=== PATIENT | male | born 1965 | race Caucasian/White ===

== ENCOUNTER 2021-08-23 20:04 | Emergency (ER) | payer OTHER, SELFPAY ==
[2021-08-23] VITALS (19 sets, daily range): BP systolic 163–222; BP diastolic 92–112; PULSE 61–75; RESP 10–18; TEMP 36.5; O2SAT 100
--- NOTE | ~2021-08-23 | CT_ITS ---
EXAMINATION: CT brain wo con DATE: 08/23/2021 21:51 INDICATION: Headaches. TECHNIQUE: Computed tomography (CT) of the head was performed without intravenous contrast. The dose- length product was 605.33 mGy-cm. Automated exposure control and iterative reconstruction technique w ere employed. COMPARISON: None FINDINGS: No acute intracranial hemorrhage, infarction, mass or mass effect. No ventriculomegaly or m idline shift. Basilar cisterns are patent. Paranasal sinuses and mastoids are pneumatized. No depress ed skull fractures. No ventriculomegaly or midline shift. IMPRESSION: 1. No acute intracranial abnormality. Reviewed, dictated and finalized at location A. FILM TECHNICIAN
--- NOTE | 2021-08-23 21:41 | ED.HA ---
HPI - Headache General Chief Complaint: Headache Stated Complaint: head pain x 1 month Time Seen by Provider: 08/23/21 21:41 Source: patient Mode of arrival: ambulatory Limitations: no limitations History of Present Illness HPI Narrative: Patient is a 56-year-old male with a history of prediabetes, borderline hypertension, presenting for evaluation of headache. Patient reports 4 weeks of worsening, throbbing headache pain which is behind his eyes, over his forehead and the back of his head. He reports gradual achiness with his headache over the past several weeks, states that this has occurred in the past many years ago and he was diagnosed with tension headaches at that point. He reports intermittently blurry vision, but no blurry vision currently. He denies nausea, vomiting, chest pain. No photophobia. No focal weakness, numbness or paresthesias. He has been ambulatory. Patient states it has been over 2 years since he has seen a physician. At his last primary care physician appointment he was told he was borderline diabetic and may need blood pressure medication, but then he stopped going to the doctor secondary to pandemic. Patient does notice that his headache worsens if he does not have food or misses a meal. States that today he did not eat lunch and then found his headache to be worse than typical. Does not notice positional pain just. Denies neck pain, fever, rhinorrhea or congestion. No thunderclap sensation. States that Tylenol does often improve the pain and he has been using it intermittently. Related Data Allergies Allergy/AdvReac Type Severity Reaction Status Date / Time No Known Allergies Allergy Unverified 01/16/18 10:41 Review of Systems Review of Systems: CONSTITUTIONAL: Denies fever, chills, or sweats. EYES: Denies current visual changes, redness, or discharge. ENT: Denies rhinorrhea, congestion, sore throat, or otalgia. CARDIOVASCULAR: Denies chest pain, palpitations, or edema. RESPIRATORY: Denies cough or dyspnea. GASTROINTESTINAL: Denies abdominal pain, nausea, vomiting, or diarrhea. GENITOURINARY: Denies dysuria or hematuria. SKIN: Denies rash or itching. MUSCULOSKELETAL: Denies back pain, joint pain, or myalgia. NEUROLOGIC: Reports headache without numbness or weakness PSYCHIATRIC: Denies anxiety or depression. [facility] Family History Family History Mother Family history of kidney disease Family history of chronic obstructive pulmonary disease Father Family history of diabetes mellitus in first degree relative Family history of heart disease in male family member before age 55 Sibling Family history of diabetes mellitus in first degree relative Social History Social History Smoking status: Never smoker Alcohol intake: never Exam Narrative: GENERAL: Awake, alert, conversant HEAD: Normocephalic, atraumatic. EYES: 2+ PERRLA and EOMI. ENT: Nares clear, no rhinorrhea or epistaxis. Mucous membranes moist. NECK: Supple. CHEST: No respiratory distress, breathing even and non labored HEART: Regular rate, sinus rhythm ABDOMEN:Non distended, non tender EXTREMITIES: Normal range of motion. No edema. SKIN: Warm, dry, no rash. NEURO:No focal deficits. Alert and oriented x3. Finger to nose intact bilaterally. EOMs intact without nystagmus. No facial droop/asymmetry noted bilaterally. Grimace intact. Intact sensation in face. Hearing intact bilaterally. Shoulder shrug intact. Strength 5/5 bilateral upper extremities. Strength 5/5 bilateral lower extremities. Reflexes 2+ patellar. Heel to byers intact bilaterally. Ambulatory exam deferred. Course Vital Signs Vital signs: Vital Signs Temperature 36.5 C 08/23/21 20:12 Pulse Rate 75 08/23/21 20:12 Respiratory Rate 15 08/23/21 20:12 Pulse Oximetry 100 08/23/21 20:12 Temperature 36.5 C 08/23/21 20:12 Pulse Rate 60
--- NOTE | 2021-08-23 21:42 | ECG_ITS ---
Measurements Intervals [place] Rate: 61 P: 18 NM: 180 QRS: -27 QRSD: 111 T: 24 QT: 400 QTc: 403 Interpretive Statements SINUS RHYTHM INTRAVENTRICULAR CONDUCTION DELAY DELAYED PRECORDIAL R/S TRANSITION VOLTAGE CRITERIA FOR LVH MINIMAL Q WAVES- HIGH LATERAL LEADS BORDERLINE ECG Electronically Signed On 08-24-2021 6:33:03 MARBLE MASON by Ace Robins D.O.
[2021-08-23 22:04] LABS: Basophils Percent Auto 0.3 % (0.2-1.2); Eosinophils Percent Auto 0.3 % (0-4.4); Hematocrit 40.9 % (42.0-52.0); Immature Granulocyte Absolute 0.02 K/mm3 (0.00-0.031); Immature Granulocyte Percent A 0.3 % (0-0.5); Lymphocytes Absolute Auto 1.67 K/mm3 (0.9-3.2); Lymphocytes Percent Auto 23.4 % (18.3-44.2); Mean Corpuscular HGB Conc 36.7 g/dl (32-36); Mean Corpuscular Hemoglobin 32.3 pg (26-34); Mean Corpuscular Volume 88.1 fl (80-100); Mean Platelet Volume 8.7 fl (7.4-10.4); Monocytes Absolute Auto 0.3 K/mm3 (0.1-0.6); Monocytes Percent Auto 4.8 % (2.6-8.5); Neutrophils Absolute Auto 5.1 K/mm3 (1.3-6.7); Neutrophils Percent Auto 70.9 % (45.5-73.1); Platelet Count Result 142 k/mm3 (150-375); Red Blood Count 4.64 M/mm3 (4.6-6.20); Red Cell Distribution Width 11.8 % (11.5-14.5); White Blood Count 7.1 K/mm3 (4.5-10.0)
[2021-08-23 22:14] LABS: Anion Gap 5 mmol/L (8-16); Blood Urea Nitrogen 15 mg/dL (9-20); Calcium 9.9 mg/dL (8.4-10.2); Carbon Dioxide 30 mmol/L (22-30); Chloride 99 mmol/L (98-107); Estimated CRCL calculation 70 ml/min; Estimated Glomerular Filt Rate > 60; Glucose 132 mg/dL (65-110); Potassium 3.5 mmol/L (3.4-5.0); Sodium 134 mmol/L (137-145)
[2021-08-23 22:21] LABS: Add Urine Microscopic? YES; Appearance Urine Cloudy (Clear); Bacteria Urine Trace /hpf; Bilirubin Urine Negative (Negative); Blood Urine Negative (Negative); Color Urine Yellow (Yellow); Glucose Urine UA Negative (Negative); Ketones Urine Negative (Negative); Leukocyte Esterase Ur Negative LEU/UL (Negative); Mucus Urine Rare /lpf; Nitrate Urine Negative (Negative); Protein Urine Negative (Negative); Specific Grav Ur 1.013 (1.001-1.035); Squamous Epithelial Cell Urine Rare /hpf (Few); Urobilinogen Urine Negative mg/dL (<2.0); WBC Urine 0-3 /hpf
[2021-08-23] MEDS: SODIUM CHLORIDE 0.9% IV 500 ML 999 ML IV CONT (22:58)
[2021-08-23] MEDS: diphenhydrAMINE HCl INJ 50 MG/ML VIAL 25 MG IV PUSH (22:59)
[2021-08-23] MEDS: ACETAMINOPHEN 500 MG TABLET 1000 MG PO (23:00)
[2021-08-23] MEDS: MAGNESIUM SULF 2 GM/WATER 50ML 2 GM/50 ML BAG IVPB (23:02)
[2021-08-23] MEDS: KETOROLAC 15 MG/ML VIAL (*BKC) IV PUSH (23:02)
[2021-08-23 23:38] LABS: Erythrocyte Sedimentation Rate 5 mm/hr (0-20)
[2021-08-23 23:59] LABS: Troponin I < 0.012 ng/mL (0.000-0.034)
[2021-08-24 00:11] LABS: CRP < 0.5 mg/dL (<1.0)
[2021-08-24 00:48] VITALS: BP 168/96; PULSE 60; RESP 17; O2SAT 97
== END 2021-08-24 01:42 | disposition home or self-care (01) ==
PROVIDERS: Emergency Provider Emergency Medicine; PCP Internal Medicine
DX: R51.9 Headache, unspecified (principal); I10 Essential (primary) hypertension
CPT/HCPCS: 36415; 70450; 80048; 81001; 84484; 85025; 85652; 86140; 93005; 96361; 96365; 96375; 99284; A9270; J1100; J1200; J1885; J3475; J7040

== ENCOUNTER 2021-08-26 14:27 | Emergency (ER) | payer OTHER, SELFPAY ==
--- NOTE | ~2021-08-26 | XR_ITS ---
EXAMINATION: XR chest 2V 08/26/2021 17:20 INDICATION: Presyncope. Hypertension. PROCEDURE: 2 view chest COMPARISON: No prior studies for comparison. FINDINGS: The lungs are clear. The cardiomediastinal silhouette is within normal limits. There are no pleural effusions. There is no pneumothorax suspected. IMPRESSION: 1: NO ACUTE CARDIOPULMONARY DISEASE. Reviewed, dictated and finalized at location A. ICAL CELL CHANGER
--- NOTE | ~2021-08-26 | CT_ITS ---
EXAMINATION: CTA brain carotid DATE: 08/26/2021 16:21 SYSTEM ADMIN INDICATION: Headache, paresthesias and hypertension TECHNIQUE: Computed tomographic angiography (CTA) of the head was performed without and with 100 mL O mnipaque-350 intravenous contrast. CTA of the neck was performed with intravenous contrast. The dose- length product was 1792.83 mGy-cm. Maximum intensity projection and volume rendered 3D-reconstruction s were created by the technologist on a separate workstation. COMPARISON: CT dated 12 08/23/2021. FINDINGS: HEAD CT/CTA: Normal brain parenchymal volume. No acute intracranial hemorrhage, infarction, mass or m ass effect. No ventriculomegaly or midline shift. Normal tripathi-white differentiation. Paranasal sinuse s and mastoids are pneumatized. No depressed skull fractures. There is normal enhancement of the intr acranial arteries was symmetric anterior, middle and posterior cerebral arteries. There is dominant l eft vertebral artery. No significant stenosis, occlusion or aneurysm. NECK CTA: Lung apices are normal. The carotid arteries are normal in course and caliber without evide nce for dissection, significant stenosis or occlusion. Thyroid gland is unremarkable. No cervical lym phadenopathy. There is 0% stenosis of the proximal right internal carotid artery relative to normal distal artery l umen diameter (NASCET criteria). There is 0% stenosis of the proximal left internal carotid artery re lative to normal distal artery lumen diameter. IMPRESSION: 1: No acute intracranial abnormality. 2: No significant vascular abnormality of the head or neck. Reviewed, dictated and finalized at location A. EM ADMIN
[2021-08-26 14:33] VITALS: BP 164/101; PULSE 74; RESP 18; TEMP 36.6; O2SAT 99
--- NOTE | 2021-08-26 14:37 | ECG_ITS ---
Measurements Intervals [place] Rate: 67 P: 28 SD: 164 QRS: -36 QRSD: 109 T: 30 QT: 405 QTc: 430 Interpretive Statements SINUS RHYTHM LEFT AXIS DEVIATION VOLTAGE CRITERIA FOR LVH BORDERLINE R WAVE PROGRESSION, ANTERIOR LEADS BASELINE ARTIFACT- I, II, III, AVR, AVL, AVF BORDERLINE ECG Electronically Signed On 08-27-2021 7:54:02 FAMILY SERVICES WORKER by Ace Robins D.O.
[2021-08-26 14:58] VITALS: BP 161/97; PULSE 68; RESP 14; O2SAT 97
--- NOTE | 2021-08-26 14:58 | ED.RECABL ---
HPI - Recheck/Abnormal Lab/Rx General Chief Complaint: Recheck/Abnormal Lab/Rx Stated Complaint: high bp Time Seen by Provider: 08/26/21 14:30 Source: patient Mode of arrival: ambulatory Limitations: no limitations History of Present Illness HPI narrative: This is a 56 year old male that presents to the ER for hypertension. Reports he was seen in the ED for this 3 days ago. Treated for his headache and discharged with hydrochlorothiazide. Reports he has been taking this daily as prescribed. Yesterday he was feeling better, today he again started to note headache. Notes that he feels funny . He was having paresthesias in his hands and feet and felt like he might pass out. Denies fever, vision changes, chest pain, shortness of breath, vomiting, or lower extremity edema. Related Data Allergies Allergy/AdvReac Type Severity Reaction Status Date / Time No Known Allergies Allergy Verified 08/26/21 14:37 Review of Systems Review of Systems: CONSTITUTIONAL: Denies fever EYES: Denies visual changes CARDIOVASCULAR: Denies chest pain, or edema. RESPIRATORY: Denies dyspnea. GASTROINTESTINAL: Denies vomiting NEUROLOGIC: Reports headache. Denies numbness, or weakness. All systems reviewed & are unremarkable except as noted in HPI and below PMFSH Past Medical History Medical History (Updated 08/26/21 @ 17:40 by Bri Wilkerson PA-C) Hypertension Family History Family History Mother Family history of kidney disease Family history of chronic obstructive pulmonary disease Father Family history of diabetes mellitus in first degree relative Family history of heart disease in male family member before age 55 Sibling Family history of diabetes mellitus in first degree relative Social History Social History Smoking status: Never smoker Alcohol intake: never Exam Narrative: GENERAL: Well-appearing, well-nourished, and in no acute distress. HEAD: Normocephalic, atraumatic. EYES: PERRLA and EOMI. ENT: Nares clear, no rhinorrhea or epistaxis. Mucous membranes moist. Oropharynx without tonsillar hypertrophy exudate or other lesions. Bilateral TMs pearly tripathi non-bulging NECK: Supple. No adenopathy or masses. No carotid bruits or JVD CHEST: Clear to auscultation. No respiratory distress. No wheezes rales or rhonchi HEART: Regular rate and rhythm. No murmur heard. Normal peripheral pulses. EXTREMITIES: Normal range of motion. No edema. SKIN: Warm, dry, no rash. NEURO: No focal deficits. Alert and oriented x3. Cranial nerves II through XII grossly intact PSYCH: Normal mood and affect Course Consultations Consultation #1: Spoke with Dr. Manjarrez about patient and workup who would like Losartan 50mg added on Date: 08/26/21 Time: 17:40 Vital Signs Vital signs: Vital Signs Temperature 97.8 F 08/26/21 14:33 Pulse Rate 74 08/26/21 14:33 Respiratory Rate 18 08/26/21 14:33 Blood Pressure 164/101 H 08/26/21 14:33 Pulse Oximetry 99 08/26/21 14:33 Temperature 97.8 F 08/26/21 14:33 Pulse Rate 63 08/26/21 17:31 Respiratory Rate 18 08/26/21 17:31 Blood Pressure 161/87 H 08/26/21 17:31 Pulse Oximetry 96 08/26/21 17:31 MDM - Recheck/Abnormal Lab/Rx MDM Narrative Medical decision making narrative: Patient presents to the ER for headache and hypertension. Patient was evaluated for this 3 days ago and started on hydrochlorothiazide. Reports he has been taking this as prescribed. Blood pressure today in the 150s to 160s systolic. Patient given migraine cocktail with relief of headache. CBC and metabolic panel without concerning findings. EKG without acute changes. Baseline troponin is negative. Chest x-ray without acute cardiopulmonary abnormality. CTA of the head and neck is without acute findings. Patient was updated on case findings. Spoke with Dr. Manjarrez about patient and workup
[2021-08-26] MEDS: SODIUM CHLORIDE 0.9% IV 1,000 ML 999 ML IV CONT (15:05)
[2021-08-26] MEDS: diphenhydrAMINE HCl INJ 50 MG/ML VIAL 25 MG IV PUSH (15:06)
[2021-08-26] MEDS: METOCLOPRAMIDE HCL INJ 10 MG/2 ML VIAL IV PUSH (15:06)
[2021-08-26 15:14] LABS: Basophils Percent Auto 0.5 % (0.2-1.2); Eosinophils Percent Auto 0.5 % (0-4.4); Hemoglobin 15.9 g/dL (14.0-18.0); Immature Granulocyte Absolute 0.01 K/mm3 (0.00-0.031); Immature Granulocyte Percent A 0.2 % (0-0.5); Lymphocytes Absolute Auto 2.17 K/mm3 (0.9-3.2); Lymphocytes Percent Auto 35.3 % (18.3-44.2); Mean Corpuscular HGB Conc 36.1 g/dl (32-36); Mean Corpuscular Hemoglobin 32.2 pg (26-34); Mean Corpuscular Volume 89.1 fl (80-100); Mean Platelet Volume 8.6 fl (7.4-10.4); Monocytes Absolute Auto 0.4 K/mm3 (0.1-0.6); Monocytes Percent Auto 5.7 % (2.6-8.5); Neutrophils Absolute Auto 3.6 K/mm3 (1.3-6.7); Neutrophils Percent Auto 57.8 % (45.5-73.1); Platelet Count Result 160 k/mm3 (150-375); Red Blood Count 4.94 M/mm3 (4.6-6.20); Red Cell Distribution Width 11.8 % (11.5-14.5); White Blood Count 6.1 K/mm3 (4.5-10.0)
[2021-08-26 15:24] LABS: Anion Gap 8 mmol/L (8-16); Blood Urea Nitrogen 19 mg/dL (9-20); Calcium 9.9 mg/dL (8.4-10.2); Carbon Dioxide 33 mmol/L (22-30); Chloride 93 mmol/L (98-107); Estimated CRCL calculation 70 ml/min; Estimated Glomerular Filt Rate > 60; Glucose 188 mg/dL (65-110); Potassium 3.8 mmol/L (3.4-5.0); Sodium 134 mmol/L (137-145)
[2021-08-26 15:31] LABS: Prothrombin Time 12.7 Seconds (11.1-14.7)
[2021-08-26 15:32] LABS: Partial Thromboplastin Time 23.4 SECONDS (22.3-36.8)
[2021-08-26 15:36] LABS: Troponin I < 0.012 ng/mL (0.000-0.034)
[2021-08-26 16:47] LABS: Hemoglobin A1C 5.8 % (<5.7)
[2021-08-26 17:31] VITALS: BP 161/87; PULSE 63; RESP 18; O2SAT 96
[2021-08-26] MEDS: LOSARTAN POTASSIUM 50 MG TABLET PO (17:43)
== END 2021-08-26 18:00 | disposition home or self-care (01) ==
PROVIDERS: Physician Assistant; Emergency Provider Emergency Medicine; PCP Internal Medicine
DX: I10 Essential (primary) hypertension (principal); R94.31 Abnormal electrocardiogram [ECG] [EKG]
CPT/HCPCS: 36415; 70496; 70498; 71046; 80048; 83036; 84484; 85025; 85610; 85730; 93005; 96365; 96375; 99284; A9270; J0131; J1200; J2765; J7030; Q9967

== ENCOUNTER 2021-09-15 10:00 | Emergency (ER) | payer OTHER, SELFPAY ==
--- NOTE | ~2021-09-15 | XR_ITS ---
EXAMINATION: XR shoulder RT min 2V EXAM DATE: 09/15/2021 11:43 INDICATION: Anterior pain with decreased range of motion. TECHNIQUE: The following left shoulder projections obtained: frontal projection with internal rotatio n, frontal projection with external rotation, Grashey, and scapular Y view (4+ views). There is no p rior study for comparison. FINDINGS: There is dense calcification along the rotator cuff, calcific tendinosis There is mild to moderate glenohumeral joint, mild to moderate acromioclavicular joint primary osteoarthritis. There are no acute fractures identified. No radiopaque foreign bodies identified. IMPRESSION: 1. 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 2. Calcific tendinosis. Reviewed, dictated and finalized at location B. VISUAL DESIGNER
[2021-09-15 10:06] VITALS: BP 154/86; PULSE 98; RESP 16; TEMP 36.4; O2SAT 100
--- NOTE | 2021-09-15 11:51 | ED.EXTPRO ---
HPI - Extremity Problem General Chief complaint: Extremity Problem,Nontraumatic Stated complaint: shoulder pain Time Seen by Provider: 09/15/21 11:13 History of Present Illness HPI Narrative: Patient is a 56-year-old male who presents to the ER with right shoulder pain. Progressing over the last week. Painful over the anterior portion of the shoulder. Able to perform external rotation and cannot lift his arm beyond 80 degrees with abduction. No numbness or tingling. No known trauma. Denies chest pain or chest pressure. No exertional shortness of breath. No pain with deep breaths. Has a history of a cartilaginous growth on the left shoulder that was excised years ago. Related Data Allergies Allergy/AdvReac Type Severity Reaction Status Date / Time No Known Allergies Allergy Verified 09/15/21 12:43 Review of Systems Review of Systems: All systems reviewed & are unremarkable except as noted in HPI and below Constitutional: Constitutional: Denies chills, Denies fever(s) and Denies weakness ENT: Denies nasal congestion and Denies sore throat Respiratory: Respiratory: Denies cough and Denies dyspnea Gastrointestinal: Gastrointestinal: Denies abdominal pain, Denies nausea and Denies vomiting Musculoskeletal: Musculoskeletal: Reports arthralgias and Denies joint swelling Neurologic: Denies focal weakness and Denies numbness PMFSH Past Medical History Medical History (Updated 09/15/21 @ 12:47 by Fco Milian MD) Hypertension Surgical History Surgical History (Updated 09/15/21 @ 11:53 by Fco Milian MD) H/O hernia repair H/O shoulder surgery Left Family History Family History Mother Family history of kidney disease Family history of chronic obstructive pulmonary disease Father Family history of diabetes mellitus in first degree relative Family history of heart disease in male family member before age 55 Sibling Family history of diabetes mellitus in first degree relative Social History Social History (Updated 09/10/21 @ 11:24 by Anat Pham CMA) Smoking status: Never smoker Alcohol intake: current Alcohol use details: Has not drank alcohol since his hospital visit 08/26/21 Substance use: never Exam Narrative: GENERAL: Well-appearing, well-nourished, and in no acute distress. HEAD: Normocephalic, atraumatic. NECK: Supple. No reproducible tenderness of the neck or trapezius musculature. CHEST: Clear to auscultation. No respiratory distress. HEART: Regular rate and rhythm. Normal peripheral pulses. EXTREMITIES: Focused exam of the right upper extremity elicits tenderness and swelling right shoulder anteriorly. Limited external rotation and abduction. Cannot internally rotate to touch his back but can place his hand on his abdomen. No numbness or tingling extending down the arm. Normal range of motion at the elbow and wrist. No warmth or redness of the shoulder. SKIN: Warm, dry, no rash. NEURO: Alert and oriented x3. PSYCH: Normal mood and affect. Course Course Emergency Course: Patient informed of results. Placed in sling for comfort. Range of motion exercises and follow-up with orthopedic surgery. Vital Signs Vital signs: Vital Signs Temperature 97.6 F 09/15/21 10:06 Pulse Rate 98 09/15/21 10:06 Respiratory Rate 16 09/15/21 10:06 Blood Pressure 154/86 H 09/15/21 10:06 Pulse Oximetry 100 09/15/21 10:06 Temperature 97.6 F 09/15/21 10:06 Pulse Rate 98 09/15/21 10:06 Respiratory Rate 16 09/15/21 10:06 Blood Pressure 154/86 H 09/15/21 10:06 Pulse Oximetry 100 09/15/21 10:06 MDM - Extremity (Nontraumatic) Imaging Data Radiologist's impression: ITS Impressions Shoulder X-Ray 09/15/21 11:48 IMPRESSION: 1. 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 2. Calcific tendinosis. Discharge Plan Discharge Clinical Impression: Calcific tendon
[2021-09-15] MEDS: KETOROLAC (*BKC) 60 MG/2 ML VIAL IM (12:14)
== END 2021-09-15 12:55 | disposition home or self-care (01) ==
PROVIDERS: Emergency Provider Emergency Medicine; PCP Internal Medicine
DX: M75.31 Calcific tendinitis of right shoulder (principal); I10 Essential (primary) hypertension
CPT/HCPCS: 73030; 96372; 99283; A4565; J1885

== ENCOUNTER 2023-02-24 03:01 | Day surgery (SDC) | payer OTHER, SELFPAY ==
[2023-02-08 09:04] VITALS: BMI 27.4
[2023-02-24 11:03] VITALS: BP 141/97; PULSE 67; RESP 18; TEMP 36.6; O2SAT 99
[2023-02-24] MEDS: LACTATED RINGERS 1,000 ML 150 ML IV CONT (11:08)
--- NOTE | 2023-02-24 11:10 | P.HP_ITS ---
History of Present Illness History of Present Illness Consent: Risks, benefits, and alternatives have been discussed and questions answered. Patient agrees to proceed with procedure. Chief complaint: neoplasm screening Narrative: Fabrice Dawn is a 58 year old male Referred for colon cancer screening. Review of Systems Review of Systems: All systems reviewed & are unremarkable except as noted in HPI and below PMFSH Past Medical History Medical History Hyperlipidemia Hypertension Surgical History Surgical History H/O hernia repair H/O shoulder surgery Left Family History Family History Mother Family history of kidney disease Family history of chronic obstructive pulmonary disease Father Family history of diabetes mellitus in first degree relative Family history of heart disease in male family member before age 55 Sibling Family history of diabetes mellitus in first degree relative Social History Social History Smoking status: Never smoker Alcohol intake: current Drinks per week: 7 Alcohol use details: TESSA Substance use: never Substance use type: does not use Lack of Transportation: No Lack of Food: Never True Current Housing: I Have Housing Concerned About Future Housing: No Difficulty Paying Gas/Electric Bills: No Difficulty Paying for Meds: No Currently Unemployed: No Difficulty w/ Childcare or Family Care: No Living arrangements: with family Spiritual care concerns: No Meds Home Medications and Allergies Home Medications Medication Instructions Recorded Confirmed Type metformin 500 mg tablet 500 mg PO BID #180 tabs 12/27/22 02/08/23 Rx hydrochlorothiazide 25 mg tablet 25 mg PO DAILY 02/08/23 02/08/23 History losartan 50 mg tablet 50 mg PO DAILY 02/08/23 02/08/23 History Allergies Allergy/AdvReac Type Severity Reaction Status Date / Time No Known Allergies Allergy Verified 02/24/23 11:02 Vital Signs Vital Signs - 24 hr 02/24/23 11:03 Temperature 36.6 C Pulse Rate 67 Respiratory Rate 18 Blood Pressure 141/97 H Pulse Oximetry 99 Exam Const: General: alert Orientation/consciousness: patient oriented x3 Resp: Auscultation: clear to auscultation bilaterally Cardio: Rhythm: regular rhythm GI: GI Palp: Yes Soft to palpation and No Tenderness to palpation present (GI) Neuro: General: patient oriented x3 Assessment and Plan Assessment and plan (1) Screening for colon cancer: Code(s): Z12.11 - Encounter for screening for malignant neoplasm of colon Status: Acute Assessment and Plan: Colonoscopy with possible biopsy or polypectomy or cautery or injection of sub stances.
[2023-02-24 11:17] LABS: Glucose Point of Care 109 mg/dl (65-105)
--- NOTE | 2023-02-24 11:36 | WPDANESEPPF ---
Anes - Initial Pre Proc Eval Procedure: Operation Date: 02/24/23 12:30 Proposed Procedures p Colonoscopy - Arian Rojas MD Date/Time: 02/24/23 11:36 Surgeon: Arian Rojas MD Pre Op Diagnosis: neoplasm screening Patient Data Age: 58 Gender: M Height: 1.73 m Weight: 78.9 kg Last Vital Signs Temp 97.8 F 02/24/23 11:03 Pulse 67 02/24/23 11:03 Resp 18 02/24/23 11:03 BP 141/97 H 02/24/23 11:03 Pulse Ox 99 02/24/23 11:03 Allergies Allergy/AdvReac Type Severity Reaction Status Date / Time No Known Allergies Allergy Verified 02/24/23 11:02 Home Medications Medication Instructions Recorded Confirmed Type metformin 500 mg tablet 500 mg PO BID #180 tabs 12/27/22 02/08/23 Rx hydrochlorothiazide 25 mg tablet 25 mg PO DAILY 02/08/23 02/08/23 History losartan 50 mg tablet 50 mg PO DAILY 02/08/23 02/08/23 History Laboratory Tests 02/24/23 11:13 POC Capillary Glucose 109 H mg/dl (65-105) Patient hx anesthesia problems: none Family hx anesthesia problems: none Results Review: All pre-operative results and documents have been reviewed as part of the pre-operative evaluation. [facility] Past Medical History Medical History Hyperlipidemia Hypertension Surgical History Surgical History H/O hernia repair H/O shoulder surgery Left Family History Family History Mother Family history of kidney disease Family history of chronic obstructive pulmonary disease Father Family history of diabetes mellitus in first degree relative Family history of heart disease in male family member before age 55 Sibling Family history of diabetes mellitus in first degree relative Social History Social History Smoking status: Never smoker Alcohol intake: current Drinks per week: 7 Alcohol use details: TSESA Substance use: never Substance use type: does not use Lack of Transportation: No Lack of Food: Never True Current Housing: I Have Housing Concerned About Future Housing: No Difficulty Paying Gas/Electric Bills: No Difficulty Paying for Meds: No Currently Unemployed: No Difficulty w/ Childcare or Family Care: No Living arrangements: with family Spiritual care concerns: No Anes - Eval Final PreProcedure Day of Procedure 02/24/23 11:36 Patient weight: normal Heart: regular rate and rhythm Lungs: clear to auscultation Airway: Mallampati scale class II Neurological: alert and oriented Last oral intake: >/= 8 hours ASA classification: II Emergent: no Anesthetic plan: proceed Anesthesia type and monitoring: general GIVS and standard monitoring Results Review: All pre-operative results and documents have been reviewed as part of the pre-operative evaluation. Informed Consent: The patient's anesthetic plan and its attendant risks and benefits were discussed with the patient/family/POA. Questions were solicited and answers provided to the satisfaction of the patient/family/POA.
[2023-02-24] MEDS: SIMETHICONE ORAL SUSPENSION 20 MG/0.3 ML 30 ML BOTTLE 0.6 ML IRRIGATION (12:44)
[2023-02-24 12:54] VITALS: BP 114/77; PULSE 62; RESP 15; O2SAT 98
[2023-02-24 13:04] VITALS: BP 119/73; PULSE 58; RESP 16; O2SAT 99
[2023-02-24 13:14] VITALS: BP 124/77; PULSE 60; RESP 20; O2SAT 99
== END 2023-02-24 13:42 | disposition home or self-care (01) ==
PROVIDERS: PCP Internal Medicine; Visit Provider Internal Medicine Gastroenterology
PROC: 0DJD8ZZ Inspection of Lower Intestinal Tract, Via Natural or Artificial Opening Endoscopic (ICD-10-PCS; CPT 45378; principal; 2023-02-24 12:30)
DX: Z12.11 Encounter for screening for malignant neoplasm of colon (principal); I10 Essential (primary) hypertension; E78.5 Hyperlipidemia, unspecified; Z79.84 Long term (current) use of oral hypoglycemic drugs
CPT/HCPCS: 45378; 82948; J2001; J2704; J7120

== ENCOUNTER 2023-11-28 13:20 | Outpatient (CLI) | payer OTHER, SELFPAY ==
--- NOTE | ~2023-11-28 | XR_ITS ---
EXAMINATION: XR lg joint inject/asp w image DATE: 11/28/2023 14:16 INDICATION: Frozen left shoulder. Left shoulder pain. TECHNIQUE: A time-out was performed to verify the patient's name, date of , and procedure to b e performed. The procedure including the risks, benefits, and alternatives was discussed with the pat ient. Risks discussed included bleeding and infection. The patient understood the risks and agreed to proceed. The skin overlying the left glenohumeral joint was prepped and draped in usual sterile fas hion. Anesthetic was administered with 1% lidocaine subcutaneously. A 22 G needle was advanced unde r fluoroscopic guidance into the joint. Subsequently, injectate consisting of 3 mL 1% lidocaine and 1 mL 80 mg/mL Depo-Medrol was instilled. The needle was removed and the entry site was cleaned and d ressed. There were no immediate complications. Fluoroscopy exposure time was 0.1 minutes. The total number of images was 1. FINDINGS: Real-time fluoroscopy demonstrates the needle in the left glenohumeral joint. Patient's richa n prior to procedure:0/10. IMPRESSION: 1. Fluoroscopy guided left glenohumeral joint injection of local anesthetic and steroid. Reviewed, dictated and finalized at location A. OR NETWORK ADMINISTRATOR
== END 2023-11-28 13:21 | disposition home or self-care (01) ==
PROVIDERS: PCP Internal Medicine; Visit Provider Orthopaedic Surgery
DX: M75.02 Adhesive capsulitis of left shoulder (principal)
CPT/HCPCS: 20610; 77002; J1040

== ENCOUNTER 2024-02-18 10:59 | Emergency (ER) | payer OTHER, SELFPAY ==
[2024-02-18 11:13] VITALS: BP 113/89; PULSE 83; RESP 16; TEMP 37.1; O2SAT 100
--- NOTE | 2024-02-18 11:22 | ED.SKABFB ---
HPI - Skin/Abscess/Foreign Bdy General Chief complaint: Skin/Abscess/Foreign Body Stated complaint: Red Bump Left Leg Time Seen by Provider: 02/18/24 11:20 Source: patient Mode of arrival: ambulatory Limitations: no limitations History of Present Illness HPI narrative: Fabrice is a 59-year-old male patient presenting to the clinic today with complaints of a red bump area to the left lower lateral leg. Reports that he was cleaning out an old furnace on Monday. Denies any injury but developed some pain over the left lateral lower leg on Monday. Area was red and open and draining at that time. Area is not draining at this time but he now he has developed increasing redness and streaking going up the back of the leg and up to the left groin. Is reporting feeling feverish and having chills. Is having pain in his calf and in his groin. Patient is diabetic. Related Data Allergies Allergy/AdvReac Type Severity Reaction Status Date / Time No Known Allergies Allergy Verified 02/18/24 12:18 Review of Systems Review of Systems: Pertinent positives per HPI. Patient denies any headache, visual changes, dizziness, cough, runny nose, sore throat, shortness of breath, chest pain, palpitations, nausea, vomiting, diarrhea, constipation, abdominal pain, or any urinary issues. [facility] Past Medical History Medical History Hyperlipidemia Hypertension Surgical History Surgical History H/O hernia repair H/O shoulder surgery Left Family History Family History Mother Family history of kidney disease Family history of chronic obstructive pulmonary disease Father Family history of diabetes mellitus in first degree relative Family history of heart disease in male family member before age 55 Sibling Family history of diabetes mellitus in first degree relative Social History Social History Smoking status: Never smoker Alcohol intake: current Drinks per week: 7 Alcohol use details: TESSA Substance use: never Substance use type: does not use Lack of Transportation: No Lack of Food: Never True Current Housing: I Have Housing Concerned About Future Housing: No Difficulty Paying Gas/Electric Bills: No Difficulty Paying for Meds: No Currently Unemployed: No Education: Associate Degree Difficulty w/ Childcare or Family Care: No Living arrangements: with family Spiritual care concerns: No Comments At the time of my signature, I reviewed and agree with the nursing past medical, surgical, social, and family history. There is no relevant family history pertinent to the patient complaint. Exam Narrative: General: Well-developed, well nourished, in no apparent distress Head: Normocephalic, atraumatic. Cardio: Regular rate and rhythm, s1 and s2 normal, no murmur appreciated. Resp: Clear to auscultation bilaterally, no rhonchi, rales, wheezing or rubs. Integumentary: [place], warm, and dry, left lower lateral leg- area of induration measures approx 4x3 with surrounding redness- 10x 7cm- red streaks travel to the posterior calf and to the inner thigh/groin, no visual drainage at this time Course Course Emergency Course: Portions of this record may have been created with voice recognition software. Level of Care: Express Care Visit Vital Signs Vital signs: Vital Signs Temperature 37.1 C 02/18/24 11:13 Pulse Rate 83 02/18/24 11:13 Respiratory Rate 16 02/18/24 11:13 Blood Pressure 113/89 02/18/24 11:13 Pulse Oximetry 100 02/18/24 11:13 Temperature 37.1 C 02/18/24 11:13 Pulse Rate 83 02/18/24 11:13 Respiratory Rate 16 02/18/24 11:13 Blood Pressure 113/89 02/18/24 11:13 Pulse Oximetry 100 02/18/24 11:13 Vital signs reviewed
== END 2024-02-18 11:35 | disposition short-term general hospital (02) ==
PROVIDERS: Emergency Provider Nurse Practitioner Family; PCP Internal Medicine
DX: L03.116 Cellulitis of left lower limb (principal); E78.5 Hyperlipidemia, unspecified; I10 Essential (primary) hypertension; E11.9 Type 2 diabetes mellitus without complications
CPT/HCPCS: 99212; G0463

== ENCOUNTER 2024-02-18 12:03 | Inpatient (IN) | payer OTHER, SELFPAY ==
[2024-02-18] VITALS (7 sets, daily range): BP systolic 129–141; BP diastolic 76–96; PULSE 76–89; RESP 16–20; TEMP 36.4–37.3; O2SAT 98–99; BMI 27.2
--- NOTE | ~2024-02-18 | US_ITS ---
EXAMINATION: US soft tissue LE LT DATE: 02/19/2024 13:36 INDICATION: Left calf erythema. TECHNIQUE: Multiple grayscale and Doppler ultrasound images of the left lower limb were obtained. COMPARISON: None FINDINGS: There is hyperechoic subcutaneous fat in left calf in the patient's area of concern. No hem atoma or abscess. IMPRESSION: 1. Hyperechoic subcutaneous fat in left calf in the patient's area of concern, consistent with inflam mation. Reviewed, dictated and finalized at location A. IMPRESSION: 1. Hyperechoic subcutaneous fat in left calf in the patient's area of concern, consistent with inflammation.
[2024-02-18 13:02] LABS: Basophils Percent Auto 0.2 % (0.2-1.2); Eosinophils Percent Auto 0.2 % (0-4.4); Hematocrit 42.7 % (42.0-52.0); Immature Granulocyte Absolute 0.02 K/mm3 (0.00-0.031); Immature Granulocyte Percent A 0.2 % (0-0.5); Mean Corpuscular HGB Conc 35.1 g/dl (32-36); Mean Corpuscular Hemoglobin 30.4 pg (26-34); Mean Corpuscular Volume 86.6 fl (80-100); Mean Platelet Volume 8.9 fl (7.4-10.4); Monocytes Absolute Auto 0.5 K/mm3 (0.1-0.6); Monocytes Percent Auto 5.6 % (2.6-8.5); Neutrophils Absolute Auto 5.8 K/mm3 (1.3-6.7); Neutrophils Percent Auto 69.8 % (45.5-73.1); Platelet Count Result 144 k/mm3 (150-375); Red Blood Count 4.93 M/mm3 (4.6-6.20); Red Cell Distribution Width 12.5 % (11.5-14.5); White Blood Count 8.4 K/mm3 (4.5-10.0)
[2024-02-18 13:12] LABS: Alanine Aminotransferase 46 U/L (6-50); Albumin Level 5.1 g/dL (3.5-5.1); Alkaline Phosphatase 68 U/L (38-126); Anion Gap 11 mmol/L (4-12); Aspartate Amino Transferase 29 U/L (17-59); Bilirubin,Total 1.5 mg/dL (0.2-1.3); Blood Urea Nitrogen 16 mg/dL (9-20); Carbon Dioxide 27 mmol/L (22-30); Chloride 101 mmol/L (98-107); Estimated CRCL calculation 73 ml/min; Estimated Glomerular Filt Rate > 60; Glucose 136 mg/dL (65-110); Potassium 3.4 mmol/L (3.4-5.0); Sodium 139 mmol/L (137-145)
[2024-02-18] MEDS: ceFAZolin 1 GM/NS 50 ML 1 GM/50 ML BAG IVPB ×2 (13:36→21:51)
--- NOTE | 2024-02-18 14:02 | ED.GENADULT ---
HPI - General Adult General Chief complaint: Unspecified Stated complaint: spider bite Time Seen by Provider: 02/18/24 12:23 Source: patient Mode of arrival: ambulatory Limitations: no limitations History of Present Illness HPI narrative: 59-year-old with a history of hypertension, hyperlipidemia, diabetes here with the complaints of redness to his left leg which started few days ago he is not quite sure he was bit by an insect. He denies any fever or chills. He states that he has red streaks going all the way up to his groin. Onset (ago): day(s) (2) Location: lower extremity (left) Severity: moderate Relieving factors: none Exacerbating factors: none Associated symptoms: denies other symptoms Related Data Allergies Allergy/AdvReac Type Severity Reaction Status Date / Time No Known Allergies Allergy Verified 02/18/24 12:18 Review of Systems Review of Systems: All systems reviewed & are unremarkable except as noted in HPI and below Constitutional: Constitutional: Reports no additional constitutional complaints Eyes: Eyes: Reports no additional eye complaints ENT: Reports system reviewed and no additional complaints, except as documented Cardiovascular: Cardiovascular: Reports no additional cardiovascular complaints Respiratory: Respiratory: Reports no additional respiratory complaints Gastrointestinal: Gastrointestinal: Reports no additional gastrointestinal complaints Musculoskeletal: Musculoskeletal: Reports as per HPI Integumentary/Breasts: Skin/Breast: Reports as per HPI Neurologic: Reports system reviewed and no additional complaints, except as documented Psychiatric: Psychiatric: Reports no additional psychiatric complaints Endocrine: Endocrine: Reports no additional endocrine complaints [facility] Past Medical History Medical History Hyperlipidemia Hypertension Surgical History Surgical History H/O hernia repair H/O shoulder surgery Left Family History Family History Mother Family history of kidney disease Family history of chronic obstructive pulmonary disease Father Family history of diabetes mellitus in first degree relative Family history of heart disease in male family member before age 55 Sibling Family history of diabetes mellitus in first degree relative Social History Social History Smoking status: Never smoker Alcohol intake: current Drinks per week: 7 Alcohol use details: TESSA Substance use: never Substance use type: does not use Lack of Transportation: No Lack of Food: Never True Current Housing: I Have Housing Concerned About Future Housing: No Difficulty Paying Gas/Electric Bills: No Difficulty Paying for Meds: No Currently Unemployed: No Education: Associate Degree Difficulty w/ Childcare or Family Care: No Living arrangements: with family Spiritual care concerns: No Exam Narrative: GENERAL: Well-appearing, well-nourished, and in no acute distress. HEAD: Normocephalic, atraumatic. EYES: PERRLA and EOMI. ENT: Nares clear, no rhinorrhea or epistaxis. Mucous membranes moist. NECK: Supple. CHEST: Clear to auscultation. No respiratory distress. HEART: Regular rate and rhythm. No murmur heard. Normal peripheral pulses. ABDOMEN: Soft, nontender, nondistended, normal active bowel sounds. EXTREMITIES: Normal range of motion. No edema.Erythematous lesion on the left leg and lymphangitic streaking noted on the medial aspect of the thigh. SKIN: Warm, dry, no rash. NEURO: No focal deficits. Alert and oriented x3. PSYCH: Normal mood and affect. Course Course Emergency Course: Notified patient about his lab work agreeable with admission. Discussed with to help very accepted the patient and the treatment plan Vital Signs
[2024-02-18] MEDS: SODIUM CHLORIDE 0.9% IV 1,000 ML 75 ML IV CONT (15:43)
--- NOTE | 2024-02-18 15:58 | ADMGEN ---
This patient, Fabrice Dawn, was admitted to [facility] Surg Room 314-02. Patient/family oriented to hospital policies and general routines including ID bracelet, bed and alarms, visiting hours, pain management, procedures, bathroom and other care routines, personal items, smoking policy, room service/diet, and visiting hours. Information on how to activate the Rapid Response Team has been discussed. Patient/Family are encouraged to report perceived risks to care and to ask questions if they do not understand what they are told or what they should do. Report from Tereza in ER.
--- NOTE | 2024-02-18 16:36 | PM.IMHP ---
H&P: HPI History of Present Illness Date/Time: 02/18/24 16:35 Chief Complaint: Left leg redness. Narrative: This is a very pleasant 59-year-old male with hypertension, hyperlipidemia, and type 2 diabetes mellitus who presented to the emergency department for evaluation of left leg redness. The patient provides the following history. Monday he spent the day outside in the yard cleaning an old furnace. That evening when he was in the shower he noticed a burning pain on the side of his left calf but did not see anything on the leg at that time. The next morning there was a dark red/purple patch in the same area and since then he has developed increasing pain and redness which is extending up into the groin. He does not think that he was bitten by an insect and he denies trauma to the leg. He also reports subjective fever, chills, and shakes. He has never had similar symptoms. In the ED: He was afebrile on arrival with stable vital signs. Labs were significant for a WBC count of 8.4, platelet 144, glucose 136, lactic acid 2.5, total bilirubin 1.5. He had findings of cellulitis in the left leg with lymphangitic streaking and he was given a dose of cefazolin is being admitted in this setting for further IV antibiotics. Review of Systems Review of Systems: 12 systems were reviewed and are negative except for as per HPI. [facility] Past Medical History Medical History Hyperlipidemia Hypertension Kidney stones Type 2 diabetes mellitus Surgical History Surgical History History of arthroscopy of left shoulder History of inguinal hernia repair History of radial keratotomy History of vasectomy Family History Family History Mother Family history of kidney disease Family history of chronic obstructive pulmonary disease Father Family history of heart disease in male family member before age 55 Family history of diabetes mellitus in first degree relative Sibling Family history of diabetes mellitus in first degree relative Social History Social History Social History: Surrogate medical decision maker: Olga Dawn, spouse. Code status: Full code. 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 Spiritual care concerns: No Meds Home Medications and Allergies Home Medications Medication Instructions Recorded Confirmed Type hydrochlorothiazide 25 mg tablet 25 mg PO DAILY #90 tabs 10/27/23 02/18/24 Rx losartan 50 mg tablet 50 mg PO DAILY #90 tabs 10/27/23 02/18/24 Rx metformin 500 mg tablet 500 mg PO BID #180 tabs 01/16/24 02/18/24 Rx atorvastatin 10 mg tablet 10 mg PO DAILY 02/18/24 02/18/24 History Allergies Allergy/AdvReac Type Severity Reaction Status Date / Time No Known Allergies Allergy Verified 02/18/24 16:14 Vital Signs Vital Signs - 24 hr 02/18/24 12:14 02/18/24 12:35 02/18/24 13:40 Temperature 99.2 F Pulse Rate 88 89 Respiratory Rate 16 20 19 Blood Pressure 130/88 139/80 Pulse Oximetry 98 98 99 02/18/24 14:58 Temperature Pulse Rate 85 Respiratory Rate 18 Blood Pressure 140/91 H Pulse Oximetry 98 Exam Narrative: General: Well-developed, nontoxic-appearing male supine in bed in no distress. Weight: 79 kg.
[2024-02-18] MEDS: metFORMIN HCL 500 MG TABLET PO (17:18)
[2024-02-18] MEDS: LOSARTAN POTASSIUM 50 MG TABLET PO (17:18)
[2024-02-18 17:20] LABS: Hemoglobin A1C 6.6 % (<5.7)
[2024-02-18 17:40] LABS: Glucose Point of Care 214 mg/dl (65-105)
[2024-02-18] MEDS: INSULIN ASPART (*BKC) 100 UNITS/ML SUB-Q (17:53)
[2024-02-19 04:46] VITALS: BP 126/80; PULSE 71; RESP 16; TEMP 37.1; O2SAT 98
[2024-02-19 04:47] LABS: Glucose Point of Care 106 mg/dl (65-105)
[2024-02-19] MEDS: ceFAZolin 1 GM/NS 50 ML 1 GM/50 ML BAG IVPB ×2 (06:01→13:52)
[2024-02-19 06:33] LABS: Basophils Percent Auto 0.1 % (0.2-1.2); Eosinophils Percent Auto 0.6 % (0-4.4); Hematocrit 43.5 % (42.0-52.0); Hemoglobin 15.3 g/dL (14.0-18.0); Immature Granulocyte Absolute 0.02 K/mm3 (0.00-0.031); Immature Granulocyte Percent A 0.3 % (0-0.5); Lymphocytes Absolute Auto 2.11 K/mm3 (0.9-3.2); Lymphocytes Percent Auto 31.5 % (18.3-44.2); Mean Corpuscular HGB Conc 35.2 g/dl (32-36); Mean Corpuscular Hemoglobin 30.9 pg (26-34); Mean Corpuscular Volume 87.9 fl (80-100); Monocytes Absolute Auto 0.5 K/mm3 (0.1-0.6); Monocytes Percent Auto 6.7 % (2.6-8.5); Neutrophils Absolute Auto 4.1 K/mm3 (1.3-6.7); Neutrophils Percent Auto 60.8 % (45.5-73.1); Platelet Count Result 157 k/mm3 (150-375); Red Blood Count 4.95 M/mm3 (4.6-6.20); Red Cell Distribution Width 12.2 % (11.5-14.5); White Blood Count 6.7 K/mm3 (4.5-10.0)
[2024-02-19 06:47] LABS: Anion Gap 8 mmol/L (4-12); Blood Urea Nitrogen 15 mg/dL (9-20); Calcium 9.3 mg/dL (8.4-10.2); Carbon Dioxide 29 mmol/L (22-30); Chloride 100 mmol/L (98-107); Estimated CRCL calculation 73 ml/min; Estimated Glomerular Filt Rate > 60; Glucose 138 mg/dL (65-110); Magnesium 1.8 mg/dL (1.6-2.3); Potassium 3.5 mmol/L (3.4-5.0); Sodium 137 mmol/L (137-145)
[2024-02-19 07:41] LABS: Glucose Point of Care 135 mg/dl (65-105)
[2024-02-19] MEDS: ENOXAPARIN 40 MG/0.4 ML SYRINGE SUB-Q (07:55)
[2024-02-19] MEDS: ATORVASTATIN 10 MG TABLET PO (07:55)
[2024-02-19] MEDS: hydroCHLOROthiazide 25 MG TABLET PO (07:55)
[2024-02-19] MEDS: metFORMIN HCL 500 MG TABLET PO (07:55)
[2024-02-19 11:20] LABS: Glucose Point of Care 168 mg/dl (65-105)
[2024-02-19 14:00] VITALS: BP 130/82; PULSE 74; RESP 18; TEMP 36.6; O2SAT 100
--- NOTE | 2024-02-19 15:17 | PM.DS ---
DS: Admitting Diagnosis Discharge Date 02/19/24 Admitting Diagnosis left leg cellulitis type 2 diabetes mellitus hypertension hyperlipidemia DS: Discharge Diagnosis Discharge Diagnosis (1) Left leg cellulitis: Code(s): L03.116 - Cellulitis of left lower limb Status: Acute (2) Type 2 diabetes mellitus: Code(s): E11.9 - Type 2 diabetes mellitus without complications Status: Acute (3) Hypertension: Qualifiers: Hypertension type: primary hypertension Qualified Code(s): I10 - Essential (primary) hypertension Code(s): I10 - Essential (primary) hypertension Status: Acute (4) Hyperlipidemia: Qualifiers: Hyperlipidemia type: mixed hyperlipidemia Qualified Code(s): E78.2 - Mixed hyperlipidemia Code(s): E78.5 - Hyperlipidemia, unspecified Status: Acute DS: Summary Hospital Course Reason for hospitalization: left leg cellulitis type 2 diabetes mellitus hypertension hyperlipidemia Hospital Course: 59-year-old male with hypertension, hyperlipidemia, and type 2 diabetes mellitus who presented to the emergency department for evaluation of left leg redness.?Patient stated that he was outside Monday cleaning a furnace and upon showering later in the day and noticed a burning sensation to the left leg. The next day he developed a dark purple patch to the calf with streaking redness into his groin which prompted him to come to the hospital. Upon arrival to the ED patient was afebrile without leukocytosis on CBC. He denies any trauma, bug bites, cat scratch/bite. He was started on IV antibiotics at that time. Since starting antibiotics the erythema and edema of the leg has improved. He is no longer having streaking to the groin, vital signs remain stable, and there is no leukocytosis. A soft tissue US was obtained to rule out a possible abscess formation and was unremarkable. He was discharged on keflex to complete his antibiotic regimen. He will follow up with his PCP in 1 week. Patient discharged in home with family in stable condition. Status at Discharge Functional status at discharge: independent ambulation Time Spent with Patient Time attestation: Total time spent providing and/or coordinating discharge services: Time spent: Greater than 30 minutes Exam Narrative: AF HR 74 RR 18 SpO2 100 BP 130/82 General: well nourished, well-developed male in no acute respiratory distress who is nontoxic appearing, sitting up in bed HEENT: Normocephalic. Atraumatic. Pupils equal round reactive to light. Extraocular movement intact. Sclera clear and anicteric. No facial asymmetry. Chest: Lungs are clear to auscultation bilaterally. No wheezes or crackles. CV: Heart was regular rate and rhythm. S1/S2. No murmurs, gallops, or rubs. Abd: Abdomen was soft. Nontender. Nondistended. Positive bowel sounds. No organomegaly or masses. Ext: Improving erythema and edema left lower extremity. Mild pain with palpation. No clubbing, cyanosis. 2+ DP pulses bilaterally. Neuro: Patient is alert and oriented x4. Strength is 5/5 in both upper and lower extremities. Cranial nerves 2-12 are intact. Speech is clear. Psych: Normal mood and affect. Patient is pleasant and cooperative. Skin: Warm and dry. No rashes noted. DS: Data Data Completed and Pending Completed studies during hospitalization: Soft tissue US Pending studies at discharge: Blood culture Labs on day of discharge: Labs from last 24 hours 02/19/24 02/19/24 02/19/24 11:15 07:31 06:16 WBC 6.7 RBC 4.95 Hgb 15.3 Hct 43.5 MCV 87.9 MCH 30.9 MCHC 35.2 RDW 12.2 Plt Count 157 MPV 9.0 Immature Gran % (Auto) 0.3 Neut % (Auto) 60.8 Lymph % (Auto) 31.5 Dale % (Auto) 6.7 Eos % (Auto) 0.6 Baso % (Auto) 0.1 L Lymph # (Auto) 2.11 Dale # (Auto) 0.5 Eos # (Auto) 0.0 Baso # (Auto) 0.0 Abs Immat Gran (auto) 0.02 Absolute Neuts (auto) 4.1 Absolute Nucleated R
--- NOTE | 2024-02-27 07:35 | PC.NURSE ---
blood cx are negative.
== END 2024-02-19 15:45 | disposition home or self-care (01) | DRG 603 ==
LOC: ANHED 14:10 → ANH3MEDSUR 14:57
PROVIDERS: Physician Assistant; Admitting Provider Internal Medicine; Emergency Provider Family Medicine; PCP Internal Medicine; Visit Provider Internal Medicine
DX: L03.116 Cellulitis of left lower limb (principal); I10 Essential (primary) hypertension; E78.5 Hyperlipidemia, unspecified; E11.9 Type 2 diabetes mellitus without complications
CPT/HCPCS: 36415; 76882; 80048; 80053; 82948; 83036; 83605; 83735; 85025; 85055; 87040; 96365; 99212; 99285; A9270; G0463; J0690; J1650; J1815; J7030

== ENCOUNTER 2024-05-14 14:31 | Outpatient (CLI) | payer OTHER, SELFPAY ==
--- NOTE | ~2024-05-14 | XR_ITS ---
EXAMINATION: XR_[id number]_CR DATE: 05/14/2024 14:47 INDICATION: Neck pain. Right arm pain. TECHNIQUE: 3 views of cervical spine were obtained. COMPARISON: None. FINDINGS: There is 5 degrees dextrocurvature of cervicothoracic spine. There is mild kyphosis of cerv ical spine. Vertebral body heights are normal. There is mildly decreased disc height at C3-C4, C4-C5, and C5-C6. There is multilevel uncovertebral joint osteoarthritis, severe on the left at C5-C6. Ther e is multilevel mild facet joint osteoarthritis. No central canal stenosis or prevertebral soft tissu e swelling. IMPRESSION: 1. Mild cervical spondylosis. Reviewed, dictated and finalized at location A.
== END 2024-05-14 14:32 ==
PROVIDERS: PCP Nurse Practitioner; Visit Provider Nurse Practitioner
DX: M47.892 Other spondylosis, cervical region (principal)
CPT/HCPCS: 72040

== ENCOUNTER 2024-05-22 10:18 | Outpatient (CLI) | payer OTHER, SELFPAY ==
--- NOTE | ~2024-05-22 | MR_ITS ---
EXAMINATION: MR cervical spine wo con DATE: 05/22/2024 10:58 INDICATION: Cervical radiculopathy. TECHNIQUE: Magnetic resonance imaging (MRI) of the cervical spine was performed without intravenous c ontrast. COMPARISON: Cervical spine radiographs 05/14/2024 FINDINGS: Bone alignment is normal. Vertebral body heights are normal. There is mildly decreased disc height at C4-C5 and moderately decreased disc height at C5-C6 and C6-C7. The spinal cord signal inte nsity is normal. The following disc levels are specifically discussed: C2-C3: The disc does not extend beyond the endplate margin. There is no uncovertebral joint osteoarth ritis. There is no facet joint osteoarthritis. There is no neural foraminal stenosis. There is no deacon tral canal stenosis. C3-C4: The disc is bulging. There is moderate right and mild left uncovertebral joint osteoarthritis. There is mild left facet joint osteoarthritis. There is mild bilateral neural foraminal stenosis. Th ere is mild central canal stenosis. C4-C5: The disc is bulging. There is severe bilateral uncovertebral joint osteoarthritis. There is mi ld right and moderate left facet joint osteoarthritis. There is moderate bilateral neural foraminal s tenosis. There is mild central canal stenosis with ventral indentation of the spinal cord. C5-C6: The disc is bulging. There is severe bilateral uncovertebral joint osteoarthritis. There is mi ld bilateral facet joint osteoarthritis. There is mild right and mild left neural foraminal stenosis. There is mild central canal stenosis with ventral indentation of the spinal cord. C6-C7: There is a central protrusion. There is mild right and moderate left uncovertebral joint osteo arthritis. There is severe right and moderate left facet joint osteoarthritis. There is mild bilatera l neural foraminal stenosis. There is mild central canal stenosis. C7-T1: The disc does not extend beyond the endplate margin. There is moderate uncovertebral joint ost eoarthritis. There is mild bilateral facet joint osteoarthritis. There is no neural foraminal stenosi s. There is no central canal stenosis. IMPRESSION: 1. Moderate cervical spondylosis. Reviewed, dictated and finalized at location A.
== END 2024-05-22 10:19 ==
LOC: GOSHIMG 10:18
PROVIDERS: PCP Nurse Practitioner; Visit Provider Clinical Nurse Specialist
DX: M47.22 Other spondylosis with radiculopathy, cervical region (principal)
CPT/HCPCS: 72141

== ENCOUNTER 2025-05-21 11:44 | Outpatient (CLI) | payer OTHER, SELFPAY ==
--- NOTE | ~2025-05-21 | CT_ITS ---
EXAMINATION: CT abdomen pelvis wo/w con DATE: 05/21/2025 12:22 INDICATION: Hematuria TECHNIQUE: Computed tomography (CT) of the abdomen and pelvis was performed without intravenous contrast. CT of the abdomen and pelvis was then performed with a total of 130 mL Omnipaque-350 intravenous contrast using a double-bolus technique for simultaneous opacification of the renal parenchyma and renal collecting system. Automated exposure control and iterative reconstruction technique were employed. The dose-length product was 1176.63 mGy-cm. COMPARISON: 01/10/2018 FINDINGS: Mild dependent atelectasis in the bilateral lower lobes. Heart size is normal. No pericardial or pleural effusion. Liver, gallbladder, spleen, pancreas and right adrenal gland are normal. 2 cm low-attenuation left adrenal adenoma. There are few bilateral renal cysts the largest at lower pole the left kidney measuring 1.7 cm. 8 mm stone at the left ureteropelvic junction. No other urolithiasis with no stones more distally in the left ureter or in the right kidney or ureter. No hydronephrosis with excreted contrast extending beyond the stone. The bilateral renal collecting systems and ureters are opacified in their near entirety with no urothelial irregularities. Bilateral contrast opacified ureteral jets are visualized within the normal bladder. Mild prostatomegaly measuring 4.1 x 3.7 cm. Small fat-containing right inguinal hernia. There are few sigmoid diverticula without adjacent from trace stranding to suggest diverticulitis. No free intraperitoneal gas or fluid. No pathologically enlarged abdominal or pelvic lymphadenopathy. Small bowel and appendix appendix are normal. Moderate lower thoracic and mild lumbar spondylosis. IMPRESSION: 1. Nonobstructing 8 mm stone at the left ureteropelvic junction. Reviewed, dictated and finalized at location A.
[2025-05-21 12:05] LABS: Estimated Glomerular Filt Rate > 60
--- OUTSIDE RECORDS SUMMARY | 2025-05-21 12:07 | XMS_ITS | Encounter Summary ---
Author Organization [employer] Address [address] [place] [address] Care Team Providers Care Dental Secretary Name Role Phone Unavailable Primary Care Provider Unavailabl e Encounter Details Date Type Department Care Team (Late st Contact Info) Description 05/20/2025 External Device Data [facility] Provider, Abstract NO ADDRESS ON FILE Social History Tobacco Use Types Packs/Day Years Used Date Smoking Tobacco: Never Assessed Sex and Gender Information Value Date Recorded Sex Assigned at Not on file Legal Sex Male 2:35 PM CDT Gender Identity Not on file Sexual Orientation Not on file documented as of this encounter Plan of Treatment Not on file documented as of this encounter Visit Diagnoses Not on filedocumented in this encounter
--- OUTSIDE RECORDS SUMMARY | 2025-05-21 12:07 | XMS_ITS | Clinical Summary ---
Author Organization [facility] Address [address] [place] [address] Care Team Providers Care Deburrer Strip Name Role Phone Unavailable Primary Care Provider Unavailabl e Allergies No known active allergies Medications hydroCHLOROthia zide 25 mg tablet TAKE 1 TABLET BY MOUTH EVERY DAY 90 Tablet 1 07/28/2023 1:02 PM CDT 3 Active losartan (COZAAR) 50 mg tablet TAKE 1 TABLET BY MOUTH EVERY DAY 90 Tablet 1 07/28/2023 1:02 PM CDT 3 Active metFORMIN (GLUCOPHAGE) 500 mg tablet Take one tablet (500 mg) orally twice a day 180 Tablet 12/27/2022 2:41 PM CDT 3 Active hydroCHLOROthia zide 25 mg tablet Take 1 Tablet (25 mg) by mouth daily. 90 Tablet 1 01/23/2023 3:30 PM CDT 3 Active losartan (COZAAR) 50 mg tablet Take 1 Tablet (50 mg) by mouth daily. 90 Tablet 1 01/23/2023 3:30 PM CDT 3 Active sildenafiL (VIAGRA) 50 mg tablet Take 1 Tablet (50 mg) by mouth 1 time daily as needed for sexual activity. Administer 30 minutes to 4 hours before activity. 10 Tablet 10/09/2023 10:36 AM RN NEW GRAD 4 Active nirmatrelvir-ri tonavir (Paxlovid) 300(150mg x 2)-100 mg oral pack take TWO 150 mg tablets of nirmatrelvir with ONE 100 mg tablet of ritonavir twice daily for 5 days PO 30 Each 4 Active methylPREDNISol one (Medrol, Derick,) 4 mg Tablets, Dose Pack Takeas directed on package. 21 Tablet 11/20/2023 4:12 PM RN NEW GRAD 4 Active naproxen (Naprosyn) 500 mg tablet Take 1 Tablet (500 mg) by mouth 2 times daily. 60 Tablet 4 Active metFORMIN (GLUCOPHAGE) 500 mg tablet Take one tablet (500 mg) orally twice a day 180 Tablet 3 04/24/2024 5:43 PM CDT 4 Active atorvastatin (LIPITOR) 10 mg tablet Take 1 Tablet (10 mg) by mouth daily. 90 Tablet 1 04/24/2024 5:43 PM CDT 4 Active hydroCHLOROthia zide 25 mg tablet Take 1 Tablet (25 mg) by mouth daily in the morning. 90 Tablet 1 04/24/2024 5:43 PM CDT 4 Active losartan (COZAAR) 50 mg tablet Take 1 Tablet (50 mg) by mouth daily at dinner. 90 Tablet 1 04/24/2024 5:43 PM CDT 4 Active cyclobenzaprine (FLEXERIL) 5 mg Tablet Take 1 Tablet (5 mg) by mouth 3 times daily as needed for muscle spasm. Do not take while driving, may cause drowsiness. 20 Tablet 05/15/2024 5:33 PM CDT 4 Active methylPREDNISol one (MEDROL DOSPACK) 4 mg Tablets, Dose Pack Take as directed on package 21 Each 05/15/2024 5:33 PM CDT 4 Active Encounters Date Type Department Care Team Description 05/20/2025 External Device Data [facility] Provider, Abstract 04/16/2025 External Device Data [facility] Provider, Abstract 03/19/2025 External Device Data [facility] Provider, Abstract from Last 3 Months Social History Tobacco Use Types Packs/Day Years Used Date Smoking Tobacco: Never Assessed Sex and Gender Information Value Date Recorded Sex Assigned at Not on file Legal Sex Male 2:35 PM CDT Gender Identity Not on file Sexual Orientation Not on file Plan of Treatment Health Maintenance Due Date Last Done Comments DTAP/TDAP/TD VACCINES (1 - Tdap) 02/07/1984 COLORECTAL SCREENING 2010 Colorectal Cancer Screening 2010 FIT-DNA Q 3 years 2010 FIT/FOBT Q 1 year 2010 Flex Sig/CT Colonography Q 5 years 2010 ZOSTER VACCINE (1 of 2) 2015 INFLUENZA VACCINE (#1) 2025 RSV VACCINE (60+ or ) (1 - 1-dose 75+ series) 02/07/2040 HEPATITIS B VACCINES Aged Out No long er eligible based on patient's age to complete this topic Insurance [employer] (INTERNAL) [facility]
[2025-05-21 13:36] LABS: Hematocrit 40.5 % (42.0-52.0); Hemoglobin 13.8 g/dL (14.0-18.0); Immature Granulocyte Percent A 0.2 % (0-0.5); Lymphocytes Absolute Auto 1.87 K/mm3 (0.9-3.2); Mean Corpuscular HGB Conc 34.1 g/dl (32-36); Mean Corpuscular Hemoglobin 29.4 pg (26-34); Mean Corpuscular Volume 86.4 fl (80-100); Nucleated Red Blood Cells Absolute Auto 0.000 K/mm3 (0.0-0.012); Nucleated Red Blood Cells Perc 0.0 % (0.0-0.2); Platelet Count Result 160 k/mm3 (150-375); Red Blood Count 4.69 M/mm3 (4.6-6.20); White Blood Count 5.7 K/mm3 (4.5-10.0)
[2025-05-21 14:39] LABS: Alanine Aminotransferase 56 U/L (6-50); Albumin Level 4.3 g/dL (3.5-5.1); Alkaline Phosphatase 55 U/L (38-126); Anion Gap 10 mmol/L (4-12); Aspartate Amino Transferase 43 U/L (17-59); Bilirubin,Total 0.9 mg/dL (0.2-1.3); Blood Urea Nitrogen 16 mg/dL (9-20); Calcium 9.3 mg/dL (8.4-10.2); Carbon Dioxide 28 mmol/L (22-30); Chloride 96 mmol/L (98-107); Estimated Glomerular Filt Rate > 60; Glucose 100 mg/dL (65-110); Potassium 3.5 mmol/L (3.4-5.0); Sodium 134 mmol/L (137-145); Total Protein 6.6 g/dL (6.3-8.2)
[2025-05-21 15:15] LABS: Prostate Specific Antigen 0.8 ng/mL (< OR = 4.0)
== END 2025-05-21 11:45 | disposition home or self-care (01) ==
PROVIDERS: PCP Internal Medicine; Visit Provider Nurse Practitioner
DX: R31.9 Hematuria, unspecified (principal); R10.9 Unspecified abdominal pain; N20.0 Calculus of kidney
CPT/HCPCS: 36415; 74178; 80053; 84153; 85025; Q9967

== ENCOUNTER 2025-05-28 12:43 | Day surgery (SDC) | payer OTHER, SELFPAY ==
[2025-05-28] VITALS (9 sets, daily range): BP systolic 126–158; BP diastolic 70–82; PULSE 69–93; RESP 12–20; TEMP 36.3–36.4; O2SAT 98–100
--- NOTE | ~2025-05-28 | XR_ITS ---
EXAMINATION: XR retrograde pyelo w/stent LT DATE: 05/28/2025 14:03 INDICATION: Left internal ureteral stent placement TECHNIQUE: Fluoroscopic images from a left internal ureteral stent placement are submitted for review. 24 seconds of fluoroscopy time. FINDINGS: There is a left double-J internal ureteral stent projecting in expected position, with proximal [place] loop at the level of the renal pelvis and distal loop in the pelvis within the bladder lumen. IMPRESSION: 1. Left internal ureteral stent placement. Please refer to real-time procedural findings for details. Reviewed, dictated and finalized at location O. IMPRESSION: 1. Left internal ureteral stent placement. Please refer to real-time procedur al findings for details.
--- OUTSIDE RECORDS SUMMARY | 2025-05-28 12:51 | XMS_ITS | Clinical Summary ---
Author Organization [facility] Address [address] [place] [address] Care Team Providers Care Seed Technician Name Role Phone Unavailable Primary Care Provider [...] before activity. 10 Tablet 10/09/2023 10:36 AM FLYING SQUAD WORKER 4 Active nirmatrelvir-ri tonavir (Paxlovid) 300(150mg x 2)-100 mg oral pack take TWO 150 mg tablets of nirmatrelvir with ONE 100 mg tablet of ritonavir twice daily for 5 days PO 30 Each 4 Active methylPREDNISol one (Medrol, Derick,) 4 mg Tablets, Dose Pack Takeas directed on package. 21 Tablet 11/20/2023 4:12 PM FLYING SQUAD WORKER 4 Active naproxen (Naprosyn) 500 mg tablet [...]
--- OUTSIDE RECORDS SUMMARY | 2025-05-28 12:51 | XMS_ITS ---
Author Organization Unknown ENCOUNTERS Encounter Performer Location Date Diagnosis Diagnosis Status Outpatient Gisselle Funez [facility] [address] [place] [address] [id number] [place] Inpatient [facility] [address] [place] [address] [id number] [place] Emergency [facility] [address] [place] [address] [id number] PAT Pre Admit [facility] [address] [place] [address] [id number] Outpatient Anoop Dennyrer [facility] [address] [place] [address] [id number] [place] Outpatient Arian Rojas [facility] [address] [place] [address] [id number] [place] Emergency Fco Milian [facility] [address] [place] [address] [id number] [place] Emergency Anthony Harley [facility] [address] [place] [address] [id number] [place] Emergency Zaida Iraheta [facility] [address] [place] [address] [id number] [place] *Note: Encounters from your own facility or health system may be excluded. Allergies, Adverse Reactions, Alerts Allergen Type Severity Identification Date Medications Name Date Quantity Days Supplied GPI Number
--- NOTE | 2025-05-28 12:59 | ECG_ITS ---
Test Date: 2025-05-28 13:15:40 Measurements Intervals [place] Rate: 59 P: 30 OK: 169 QRS: -16 QRSD: 110 T: 30 QT: 410 QTc: 409 Interpretive Statements SINUS BRADYCARDIA BORDERLINE R WAVE PROGRESSION, ANTERIOR LEADS BORDERLINE ECG No previous ECG available for comparison Electronically Signed On 05-28-2025 14:32:40 CDT by Ace Robins D.O.
[2025-05-28] MEDS: LACTATED RINGERS 1,000 ML 30 ML IV CONT (13:00)
--- NOTE | 2025-05-28 13:24 | P.PNAN_ITS ---
Anes - Initial Pre Proc Eval Procedure: Operation Date: 05/28/25 13:30 Proposed Procedures p Cystoscopy, Left Stent Placement, Possible Left Retrograde Pyelogram - Isaiah Steven MD Date/Time: 05/28/25 13:24 Surgeon: Isaiah Steven MD Pre Op Diagnosis: left UPJ stone Patient Data Age: 60 Gender: M Height: Weight: 77.8 kg Allergies Allergy/AdvReac Type Severity Reaction Status Date / Time No Known Allergies Allergy Verified 05/21/25 10:12 Home Medications ?Medication ?Instructions ?Recorded ?Confirmed ?Type metformin 1,000 mg tablet 1,000 mg PO BIDWMEAL 90 days #180 12/26/24 12/26/24 Rx tabs atorvastatin 10 mg tablet 10 mg PO DAILY #90 tabs 01/01 05/26 Rx hydrochlorothiazide 25 mg tablet 25 mg PO DAILY #90 ta bs 01/27/25 Rx triamcinolone acetonide 0.1 % 1 applic topical TID PRN rash #80 03/12/25 Rx topical cream grams losartan 50 mg tablet 50 mg PO DAILY #90 tabs 04/02 01/24 Rx tamsulosin 0.4 mg capsule (Flomax) 0.4 mg PO DAILY #28 caps 05/21/25 Rx hydrocodone 10 mg-acetaminophen 1 tablet PO Q6H PRN pa in #20 tabs 05/28/25 Rx 325 mg tablet Patient hx anesthesia problems: none Family hx anesthesia problems: none Results Review: All pre-operative results and documents have been reviewed as part of the pre- operative evaluation. [facility] Past Medical History Medical History Kidney stones Type 2 diabetes mellitus Hyperlipidemia Hypertension Surgical History Surgical History History of arthroscopy of left shoulder History of vasectomy History of radial keratotomy History of inguinal hernia repair Family History Family History Mother Family history of kidney disease Family history of chronic obstructive pulmonary disease Father Family history of heart disease in male family member before age 55 Family history of diabetes mellitus in first degree relative Sibling Family history of diabetes mellitus in first degree relative Social History Social History Social History: Surrogate medical decision maker: Olga Dawn, spouse. Code status: Full code. 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 Gender identity (if verbalized by the patient): Male Spiritual care concerns: No Anes - Eval Final PreProcedure Day of Procedure 05/28/25 13:24 Patient weight: normal Heart: regular rate and rhythm Lungs: clear to auscultation Airway: Mallampati scale class II Neurological: alert and oriented Last oral intake: >/= 8 hours ASA classification: III Emergent: no Anesthetic plan: proceed Anesthesia type and monitoring: general LMA and standard monitoring Results Review: All pre-operative results and documents have been reviewed as part of the pre- operative evaluation. Informed Consent: The patient's anesthetic plan and its attendant risks and benefits were discussed with the patient/family/POA. Questions were solicited and answers provided to the satisfaction of the patient/family/POA.
--- NOTE | 2025-05-28 13:32 | WPDHPUPDATE1 ---
History and Physical Update Update Date/Time: 05/28/25 13:32 History and Physical has been reviewed, including an updated exam of the patient. There are NO changes in the patient's condition. Risks, benefits, and alternatives have been discussed and questions answered. Patient agrees to proceed with procedure.
[2025-05-28] MEDS: ceFAZolin 2 GM in SODIUM CHLORIDE 0.9% IV 50 ML 100 ML IVPB (13:38)
[2025-05-28] MEDS: LIDOCAINE 2% GEL UROJET 10 ML PKG MUCOUS MEM (13:43)
[2025-05-28] MEDS: oxyCODONE HCL (*CRX) 5 MG TAB IR PO (15:24)
--- NOTE | 2025-05-29 08:16 | W.PM.PROC2 ---
Procedure Note - Detailed Date of Procedure 05/29/25 Pre-op Diagnosis Left UPJ stone Post-op Diagnosis Same Procedure Performed Cystoscopy, left ureteral stent placement, left retrograde pyelogram Surgeon Isaiah Steven MD Anesthesia General Description of Procedure Patient is brought to the operative suite where he was prepped draped in routine sterile fashion while in dorsal lithotomy position after the uneventful induction of a general anesthetic. Cystoscopy was undertaken with a 19 F rigid cystoscope. There was no urethral stricture. He has mild lateral lobe hyperplasia with a 1.5 urethra. Bladder mucosa is normal. There is no intravesical foreign body neoplasm. Has a single orthotopic ureteral bilaterally. A 0.035 in glidewire was advanced into his left renal pelvis under fluoroscopy. Retrograde pyelography is obtained with a [place] catheter to ensure appropriate placement of a 4.8 F variable length ureteral stent with proximal coil in the renal pelvis and distal coil in the bladder. Scopes wires removed and he was taken recovery room in good condition. Drains Yes Pathology None sent Complications No immediate complications Condition Stable
== END 2025-05-28 16:42 | disposition home or self-care (01) ==
PROVIDERS: PCP Internal Medicine; Visit Provider Urology
PROC: (CPT 52352; principal; 2025-05-28 13:30)
DX: N20.1 Calculus of ureter (principal); E78.5 Hyperlipidemia, unspecified; I10 Essential (primary) hypertension; E11.9 Type 2 diabetes mellitus without complications; Z79.84 Long term (current) use of oral hypoglycemic drugs; Z79.891 Long term (current) use of opiate analgesic; Z98.890 Other specified postprocedural states; Z82.49 Family history of ischemic heart disease and other diseases of the circulatory system
CPT/HCPCS: 50590; 74420; 82948; 93005; J0690; A9270; C1769; C2617; J1100; J2405; J2704; J7120

== ENCOUNTER 2025-05-30 02:02 | Day surgery (SDC) | payer OTHER, SELFPAY ==
[2025-05-28 14:25] VITALS: BMI 26.9
--- NOTE | 2025-05-28 14:30 | PC.NURSE ---
Report to the Outpatient Waiting Room, entrance under the green pavilion located off [facility], at time _0830_ on date _[id number]_. Planned Procedure Time: _1030_.? Time changes happen often and if your time is changed the preop area will call you the afternoon before. - You and your visitor will be asked to self-screen and do not enter if you have any COVID symptoms. Please call surgeon if you need to reschedule. - A mask is optional within the hospital at this time. Patients may have clear liquids (water, carbonated beverages, clear teas, apple juice) until 3 hours prior to surgery with a maximum of 20 ounces. - No food from midnight until time of surgery and no smoking, or chewing tobacco (or any form of nicotine). No chewing gum, candy or mints. Take only the following medications with a SIP of water on the morning of surgery: ___Hydrocodone if needed.____ DO NOT STOP ANY OF YOUR OTHER PRESCRIPTION MEDICATIONS PRIOR TO SURGERY EXCEPT THE FOLLOWING Hold all vitamins and supplements for 3 days per anesthesiologist. Medications to discontinue per physician Date to take last dose Please no make-up, nail bruneian, hairspray, perfume, deodorant, or body powder the day of surgery.? No jewelry (including any body piercings) or valuables the day of surgery, leave them at home.? Please take a shower or bath the night before, or the morning of, surgery with an antibacterial soap.? Wear comfortable, loose fitting clothing.? - Jewelry must be removed prior to entering the operating room.? Rings and piercings that are not removed may be cut off. - The hospital will not accept responsibility for valuables.? - Please leave all valuables, including medications, at home the day of surgery. If you are going home after surgery, a licensed concrete truck driver must drive you home.? - NO public transportation without another adult if you receive anesthesia. - We recommend that an adult stay with you for 24 hours following discharge. - We also recommend that you do not drive, make important decision, drink alcoholic beverages, or take any drugs that were not prescribed by your health care provider for at least 24 hours after your discharge time. Follow any additional instructions given to you from your surgeon. Telephone instructions given to __Sonya wife___and asked if any additional questions and then verbalized understanding. Patient advised to call surgeon office or pre surgery nurse liaison [phone] if any additional questions.
[2025-05-30] VITALS (8 sets, daily range): BP systolic 119–143; BP diastolic 64–89; PULSE 50–71; RESP 12–16; TEMP 36.4–36.9; O2SAT 95–100
--- NOTE | ~2025-05-30 | XR_ITS ---
XR abdomen/kub 1V 05/30/2025 08:43 Indication: Renal stone. He is to the elbow. Procedure: KUB Comparison: 01/16/2018 Findings: There is a left UPJ stone measuring 1 cm. There are radiodensities in the right abdomen, likely bowel content. Left internal ureteral stent in expected position. Nonobstructing bowel pattern. Impression: 1: Left UPJ stone measuring 1 cm. Left internal ureteral stent in expected position. Reviewed, dictated and finalized at location O. Impression: 1: Left UPJ stone measuring 1 cm. Left internal ureteral stent in expected posi tion.
--- OUTSIDE RECORDS SUMMARY | 2025-05-30 02:10 | XMS_ITS ---
Author Organization Unknown ENCOUNTERS Encounter Performer Location Date Diagnosis Diagnosis Status Outpatient [facility] [address] [place] [address] [id number] [place] Pre Admit [facility] [address] [place] [address] [id number] Outpatient [facility] [address] [place] [address] [id number] [place] Outpatient Gisselle Weiss [facility] [address] [place] [address] [id number] [place] Inpatient [facility] [address] [place] [address] [id number] [place] Emergency [facility] [address] [place] [address] [id number] PAT Pre Admit [facility] [address] [place] [address] [id number] Outpatient Anoop Guzman [facility] [address] [place] [address] [id number] [place] Outpatient Arian Rojas [facility] [address] [place] [address] [id number] [place] Emergency Fco Milian [facility] [address] [place] [address] [id number] [place] Emergency Anthony Cherri [facility] [address] [place] [address] [id number] [place] Emergency Zaida Iraheta [facility] [address] [place] [address] [id number] [place] *Note: Encounters from your own facility or health system may be excluded. Allergies, Adverse Reactions, Alerts Allergen Type Severity Identification Date Medications Name Date Quantity Days Supplied GPI Number
--- OUTSIDE RECORDS SUMMARY | 2025-05-30 02:10 | XMS_ITS | Clinical Summary ---
Author Organization [facility] Address [address] [place] [address] Care Team Providers Care Trust Vault Custodian Name Role Phone Unavailable Primary Care Provider [...] before activity. 10 Tablet 10/09/2023 10:36 AM APARTMENT MAINTENANCE MANAGER 4 Active nirmatrelvir-ri tonavir (Paxlovid) 300(150mg x 2)-100 mg oral pack take TWO 150 mg tablets of nirmatrelvir with ONE 100 mg tablet of ritonavir twice daily for 5 days PO 30 Each 4 Active methylPREDNISol one (Medrol, Derick,) 4 mg Tablets, Dose Pack Takeas directed on package. 21 Tablet 11/20/2023 4:12 PM APARTMENT MAINTENANCE MANAGER 4 Active naproxen (Naprosyn) 500 mg tablet [...] patient's age to complete this topic Insurance [address] [id number] RX [facility] [employer] (INTERNAL) [facility]
--- NOTE | 2025-05-30 06:40 | WPDHPUPDATE1 ---
History and Physical Update Update Date/Time: 05/30/25 06:40 History and Physical has been reviewed, including an updated exam of the patient. There are NO changes in the patient's condition. Risks, benefits, and alternatives have been discussed and questions answered. Patient agrees to proceed with procedure.
[2025-05-30] MEDS: LACTATED RINGERS 1,000 ML 30 ML IV CONT (09:00)
--- NOTE | 2025-05-30 09:05 | WPDANESEPPF ---
Anes - Initial Pre Proc Eval Procedure: Operation Date: 05/30/25 10:30 Proposed Procedures p Left Extracorporeal Shock Wave Lithotripsy - Isaiah Steven MD Date/Time: 05/30/25 09:05 Surgeon: Isaiah Steven MD Pre Op Diagnosis: left UPJ stone Patient Data Age: 60 Gender: M Height: 1.7 m Weight: 77.8 kg Allergies Allergy/AdvReac Type Severity Reaction Status Date / Time No Known Allergies Allergy Verified 05/30/25 09:05 Home Medications ?Medication ?Instructions ?Recorded ?Confirmed ?Type metformin 1,000 mg tablet 1,000 mg PO BIDWMEAL 90 days #180 12/26/24 05/28/25 Rx tabs atorvastatin 10 mg tablet 10 mg PO DAILY #90 tabs 01/27/25 05/28/25 Rx hydrochlorothiazide 25 mg tablet 25 mg PO DAILY #90 tabs 01/27/25 05/28/25 Rx triamcinolone acetonide 0.1 % 1 applic topical TID PRN rash #80 03/12/25 05/28/25 Rx topical cream grams losartan 50 mg tablet 50 mg PO DAILY #90 tabs 04/24/25 05/28/25 Rx tamsulosin 0.4 mg capsule (Flomax) 0.4 mg PO DAILY #28 caps 05/21/25 05/28/25 Rx cephalexin 500 mg capsule 500 mg PO Q8H #21 caps 05/28/25 Rx cephalexin 500 mg capsule 500 mg PO Q8H #21 caps 05/28/25 Rx hydrocodone 10 mg-acetaminophen 1 tablet PO Q6H PRN pain #20 tabs 05/28/25 05/28/25 Rx 325 mg tablet hydrocodone 5 mg-acetaminophen 325 1 - 2 tablet PO Q6H PRN pain #20 05/28/25 Rx mg tablet tabs hydrocodone 5 mg-acetaminophen 325 1 - 2 tablet PO Q6H PRN pain #20 05/28/25 Rx mg tablet tabs Patient hx anesthesia problems: none Family hx anesthesia problems: none Results Review: All pre-operative results and documents have been reviewed as part of the pre-operative evaluation. [facility] Past Medical History Medical History Kidney stones Type 2 diabetes mellitus Hyperlipidemia Hypertension Surgical History Surgical History History of arthroscopy of left shoulder History of vasectomy History of radial keratotomy History of inguinal hernia repair Family History Family History Mother Family history of kidney disease Family history of chronic obstructive pulmonary disease Father Family history of heart disease in male family member before age 55 Family history of diabetes mellitus in first degree relative Sibling Family history of diabetes mellitus in first degree relative Social History Social History Social History: Surrogate medical decision maker: Olga Dawn, spouse. Code status: Full code. 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 Informed Consent: The patient's anesthetic plan and its attendant risks and benefits were discussed with the patient/family/POA. Questions were solicited and answers provided to the satisfaction of the patient/family/POA.
[2025-05-30 09:21] LABS: INR 1.0; Partial Thromboplastin Time 23.9 Seconds (22.3-36.8); Prothrombin Time 13.6 Seconds (11.1-14.7)
[2025-05-30] MEDS: ceFAZolin 2 GM in SODIUM CHLORIDE 0.9% IV 50 ML 100 ML IVPB (10:26)
--- NOTE | 2025-05-30 11:06 | W.PM.PROC2 ---
Procedure Note - Detailed Date of Procedure 05/30/25 Pre-op Diagnosis Left UPJ stone Post-op Diagnosis Same Procedure Performed Left ESWL Surgeon Isaiah Steven MD Anesthesia General Description of Procedure The patient was brought to the operative suite where he was placed in the supine position on the Dornier lithotripsy table. The focal point of the lithotripter was placed at a calculus. A total of 2500 shocks were delivered at a power setting of 1-5. There appeared to be good fragmentation of the stone. The patient tolerated the procedure well and was taken to the recovery room in good condition.
[2025-05-30] MEDS: oxyCODONE HCL (*CRX) 5 MG TAB IR PO (12:30)
== END 2025-05-30 12:57 | disposition home or self-care (01) ==
PROVIDERS: PCP Internal Medicine; Visit Provider Urology
PROC: (CPT 50590; principal; 2025-05-30 10:30)
DX: N20.1 Calculus of ureter (principal); E78.5 Hyperlipidemia, unspecified; E11.9 Type 2 diabetes mellitus without complications; I10 Essential (primary) hypertension; Z79.84 Long term (current) use of oral hypoglycemic drugs; Z79.891 Long term (current) use of opiate analgesic; Z98.890 Other specified postprocedural states; Z82.49 Family history of ischemic heart disease and other diseases of the circulatory system
CPT/HCPCS: 50590; 36415; 74018; 82948; 85610; 85730; J0690; A9270; J2003; J2405; J2704; J7120

== ENCOUNTER 2025-06-10 13:47 | Outpatient (CLI) | payer OTHER, SELFPAY ==
--- OUTSIDE RECORDS SUMMARY | 2019-05-21 03:51 | XMS_ITS | Continuity of Care Document ---
Author Organization [facility] Address [address] [place] [address] Phone Care Team Providers Care Oxyacetylene Torch Operator Name Role Phone Judah SUBRAMANIAN, Trinidad Unavailable Unavailable Advance Directives Directive Yes / No Effective Date File Name No Information Encounters Encounter Description Practice Location Reason(s) For Visit Diagnoses Date Provider Providers Copied on Encounter [facility], [address], [place], [place], [id number], tel:[phone] [facility] No Information Judah Abdi. [address] [place] [address], [id number], . tel:[phone] Family History Family Member Type Diagnosis Age At Onset No Information Payers Payer name Insurance type Covered green party ID Authoriza tion(s) No Information Social History Type Description Quantity Date Captured Comments Sex Male Smoking Status No Information Chief Complaint And Reason For Visit No Information Reason For Referral Reason For Referral No Information History Of Present Illness Encounter Date Complaint History Of Prese nt Illness No Information Functional Status Date Functional Assessmen t No Information Instructions Date Instruction Additional Infor mation No Information Assessments Type Assessment Date No Information Patient Care Teams Name Effective Dates (start - stop) Status Members No Information
--- NOTE | ~2025-06-10 | XR_ITS ---
EXAMINATION: XR abdomen/kub 1V DATE: 06/10/2025 13:59 INDICATION: Calculus of ureter TECHNIQUE: A supine view of the abdomen on 2 radiographs was obtained. COMPARISON: 05/30/2025 FINDINGS: Left intraureteral stent remains in expected position with loops formed at the left renal pelvis and in the bladder. The pre-existing 10 mm proximal left ureteral stone is no longer visualized and there are couple new tiny likely stone fragments at the lower pole the left kidney measuring up to 3 mm and suggesting interval lithotripsy. There is suggestion of an additional 3-4 mm stone fragment along side the stent at the left ureterovesicular junction. There are couple unchanged small phleboliths in the left hemipelvis also projecting along the distal stent. Unchanged heterotopic ossicle in the right abdomen. No dilated loops of gas-filled bowel to suggest obstruction. Lung bases are clear. Heart size is normal. IMPRESSION: 1. Likely interval lithotripsy of a prior 2 mm stone along side the left internal ureteral stent at the proximal left ureter which is not visualized in the current study. 2. Couple small likely refluxed stone fragments in the lower pole calyces of the left kidney measuring up to 3 mm and 2 additional 3-4 mm stone fragment along side the stent at the left ureterovesicular junction. Reviewed, dictated and finalized at location A. IMPRESSION: 1. Likely interval lithotripsy of a prior 2 mm stone along side the left quality internship al ureteral stent at the proximal left ureter which is not visualized in the cu rrent study. 2. Couple small likely refluxed stone fragments in the lower pole calyces of th e left kidney measuring up to 3 mm and 2 additional 3-4 mm stone fragment along side the stent at the left ureterovesicular junction.
--- OUTSIDE RECORDS SUMMARY | 2025-06-10 15:19 | XMS_ITS | Clinical Summary ---
Author Organization [facility] Address [address] [place] [address] Care Team Providers Care Veneer Drier Feeder Name Role Phone Unavailable Primary Care Provider [...] before activity. 10 Tablet 10/09/2023 10:36 AM PCB DESIGNER 4 Active nirmatrelvir-ri tonavir (Paxlovid) 300(150mg x 2)-100 mg oral pack take TWO 150 mg tablets of nirmatrelvir with ONE 100 mg tablet of ritonavir twice daily for 5 days PO 30 Each 4 Active methylPREDNISol one (Medrol, Derick,) 4 mg Tablets, Dose Pack Takeas directed on package. 21 Tablet 11/20/2023 4:12 PM PCB DESIGNER 4 Active naproxen (Naprosyn) 500 mg tablet [...]
== END 2025-06-10 13:48 | disposition home or self-care (01) ==
PROVIDERS: PCP Internal Medicine; Visit Provider Urology
DX: N20.0 Calculus of kidney (principal)
CPT/HCPCS: 74018